=== PATIENT | female | born 1995 | race Caucasian/White ===

== ENCOUNTER 2017-10-20 22:39 | Emergency (ER) | payer OTHER ==
[2017-10-20] MEDS ORDERED: SODIUM CHLOR 0.9% 1000 ML INJ 1,000 ML IV SCH (22:49)
--- NOTE | 2017-10-20 22:53 | PD ---
HPI Chief Complaint: Foreign Body Time Seen by Provider: 22:49 Travel History International Travel<30 days: No Contact w/Intl Traveler<30days: No Traveled to known affect area: No History of Present Illness HPI 22-year-old female arrives with chest pain. 35 minutes prior she was eating chicken and became stuck in esophagus. She has severe chest pain since. Patient has been unable to tolerate her secretions and has been vomiting. She reports difficulty talking and difficulty breathing. No similar prior episode. Onset sudden. Timing constant. PFSH Past Medical History Medical History: Denies Significant Hx ?: Not LMP: 10/12/17 Dilation and Curettage (D&C): Yes Social History Alcohol Use: No Tobacco Use: No Substance Use: No Allergies-Medications (Allergen,Severity, Reaction): Coded Allergies: No Known Allergies (Unverified , 10/20/17) Reported Meds & Prescriptions Reported Meds & Active Scripts Active Reported Amoxicillin-Clavulanate 875-125 mg Tab 875 Mg PO BID not for use in CrCl <30 mL/minute Review of Systems Except as stated in HPI: all other systems reviewed are Neg General / Constitutional: No: Fever Physical Exam Narrative GENERAL: 22-year-old female moderate distress secondary to pain and/or anxiety, vomiting SKIN: Warm and dry. HEAD: Atraumatic. Normocephalic. EYES: Pupils equal and round. No scleral icterus. No injection or drainage. ENT: No nasal bleeding or discharge. Mucous membranes pink and moist. NECK: Trachea midline. No JVD. CARDIOVASCULAR: Regular rate and rhythm. RESPIRATORY: No accessory muscle use. Clear to auscultation. Breath sounds equal bilaterally. GASTROINTESTINAL: Abdomen soft, non-tender, nondistended. Hepatic and splenic margins not palpable. MUSCULOSKELETAL: Extremities without clubbing, cyanosis, or edema. No obvious deformities. NEUROLOGICAL: Awake and alert. No obvious cranial nerve deficits. Motor grossly within normal limits. Five out of 5 muscle strength in the arms and legs. Normal speech. PSYCHIATRIC: Appropriate mood and affect; insight and judgment normal. Data Data Last Documented VS Vital Signs Date Time Temp Pulse Resp B/P (MAP) Pulse Ox O2 Delivery O2 Flow Rate FiO2 10/20/17 23:09 95 24 129/93 (105) 100 Room Air Orders Orders Iv Access Insert/Monitor (10/20/17 22:49) Ecg Monitoring (10/20/17 22:49) Oximetry (10/20/17 22:49) Ondansetron Inj (Zofran Inj) (10/20/17 23:00) Sodium Chlor 0.9% 1000 Ml Inj (Ns 1000 M (10/20/17 22:49) Sodium Chloride 0.9% Flush (Ns Flush) (10/20/17 23:00) Hydromorphone Pf Inj (Dilaudid Pf Inj) (10/20/17 23:00) Ondansetron Inj (Zofran Inj) (10/20/17 23:00) Glucagon Inj (Glucagon Inj) (10/20/17 23:00) MDM Medical Decision Making Medical Screen Exam Complete: Yes Emergency Medical Condition: Yes Medical Record Reviewed: Yes Differential Diagnosis Foreign body in esophagus, esophageal rupture, foreign body trachea, GERD Narrative Course Case discussed with Dr. Angel. patient will go to the GI suite for endoscopic intervention Good pain control with Dilaudid as well as good nausea control w Zofran. Diagnosis Primary Impression: Esophageal obstruction due to food impaction Referrals: Nirmal Angel MD as needed Med/Other Pt SpecificInfo: No Change to Meds Disposition: 01 DISCHARGE HOME Condition: Stable Robert Malik MD Oct 20, 2017 22:53
[2017-10-20] MEDS ORDERED: GLUCAGON 1 MG/ML VIAL IV PUSH ONE (23:00)
[2017-10-20] MEDS ORDERED: ONDANSETRON HCL 4 MG/2 ML VIAL IV PUSH ONE (23:00)
[2017-10-20] MEDS ORDERED: HYDROmorphone HCL PF 2 MG/ML VIAL IV PUSH ONE (23:00)
[2017-10-20] MEDS ORDERED: SODIUM CHLORIDE 0.9% FLUSH 10 ML FLUSH IV FLUSH PRN (23:00)
[2017-10-20] MEDS ORDERED: ONDANSETRON HCL 4 MG/2 ML VIAL IVP ONE (23:00)
[2017-10-20 23:09] VITALS: BP 129/93; PULSE 95; RESP 24; O2SAT 100
[2017-10-20] MEDS ORDERED: AMOX875T2 PO (23:29)
--- NOTE | 2017-10-21 00:21 | PD.CONS ---
HPI History of Present Illness This is a 22 year old female who presents with complaints of a food bolus impaction apparently she was eating chicken earlier and since then she has been unable to swallow anything not even her saliva the patient denies any prior episodes she does report occasional history of heartburn or reflux but otherwise she has been in good health and has no other complaints PFSH Past Medical History None Past Surgical History None Coded Allergies: No Known Allergies (Unverified , 10/20/17) Medications She is currently taken amoxicillin for an infection Family History Noncontributory Social History None Review of Systems Review of systems Patient denies any headache dizziness blurry vision, denies any chest pain shortness of breath cough fever chills, Denies any palpitations or fatigue denies any polyuria dysuria hematuria, denies any numbness tingling or weakness, denies any skin rash pruritus or jaundice, denies any easy bruising or bleeding tendency, denies any recent change in mood GI Exam Vitals I&O Vital Signs Date Time Temp Pulse Resp B/P (MAP) Pulse Ox O2 Delivery O2 Flow Rate FiO2 10/20/17 23:09 95 24 129/93 (105) 100 Room Air Physical Examination HEENT: Pupils round and reactive to light; normocephalic; atraumatic; no jaundice. Throat is clear. Patient appears to be in mild distress due to the problem with swallowing and is bringing up a lot of saliva NECK: Neck is supple, no JVD, no lymphadenopathy. CHEST: Chest is clear to auscultation and percussion. CARDIAC: Regular rate and rhythm with no murmur gallop or rubs. ABDOMEN: Soft, nondistended, nontender; no hepatosplenomegaly; bowel sounds are present in all four quadrants. EXTREMITIES: No clubbing, cyanosis, or edema. SKIN: Normal; no rash; no jaundice. 3D ARTIST: No focal deficits; alert and oriented times three. Assessment and Plan Plan Patient with what appears to be a food bolus impaction Patient is advised to undergo an EGD Further recommendations to depend on the findings Patient was seen in the emergency department pot D room 48 at 11:50 PM on 2017 Nirmal Angel MD Oct 21, 2017 00:21
--- NOTE | 2017-10-21 00:54 | PD.PROCEDR ---
GI Procedure PROCEDURE PERFORMED EGD with food bolus removal and biopsy INDICATION FOR PROCEDURE Food bolus impaction PROCEDURE: The procedure, risks and benefits were discussed with Patient/POA and informed consent was obtained. Anesthesia sedated Patient with Diprivan and the patient was under general anesthesia. Patient was placed in the left lateral decubitus position. EGD: The Pentax videoscope was introduced through the oropharynx and advanced to the second portion of the duodenum under direct visualization. Retroflexion was performed in the stomach. FINDINGS: The esophagus there was clumps of chicken noted in the distal esophagus using the [place] net and going back and forth several times were able to reduce it then we used the tripod and then finally we were able to remove all the bits of chicken the esophagus was noted to be somewhat erythemic and there appears to be a mild stricturing this appears to be a benign stricture this area was biopsied but not dilated today the rest of the esophagus appeared to be unremarkable and within normal limits The stomach this appeared to be normal The duodenum this appeared to be normal ESTIMATED BLOOD LOSS: None SPECIMENS REMOVED: Biopsies from the esophagus COMPLICATIONS: None IMPRESSION: Food bolus impaction Esophagitis Esophageal stricture PLAN: Await biopsy Recommend pantoprazole Recommend follow-up with GI for repeat EGD with dilation at some point in the near future Patient advised to chew food well Patient may be discharged from a GI standpoint to home once fully recovered Nirmal Angel MD Oct 21, 2017 00:54
[2017-10-21 02:00] VITALS: BP 116/70; PULSE 83; RESP 25; TEMP 97.9; O2SAT 98
[2017-10-21] MEDS ORDERED: PROPOFOL 200 MG/20 ML AMP IV ONE (12:00)
[2017-10-21] MEDS ORDERED: SUCCINYLCHOLINE CHLORIDE 100 MG/5 ML SYRINGE IV PUSH ONE (12:00)
[2017-10-21] MEDS ORDERED: LIDOCAINE HCL 1% PF 5 ML SYRINGE OTHER ONE (12:00)
== END 2017-10-21 02:05 | disposition home or self-care (01) ==
LOC: HOR 22:39
DX: T18.128A Food in esophagus causing other injury, initial encounter (principal); K20.9 Esophagitis, unspecified; K22.2 Esophageal obstruction; R11.10 Vomiting, unspecified; R06.00 Dyspnea, unspecified; R47.02 Dysphasia; X58.XXXA Exposure to other specified factors, initial encounter
CPT/HCPCS: 43239; 43247; 88305; 88312; 96374; 96375; 99284; J0330; J1170; J1610; J2405; J7030